=== PATIENT | female | born 1935 | race Caucasian/White ===

== ENCOUNTER 2016-12-16 05:48 | Inpatient (IN) | payer MEDICARE, OTHER ==
[~2016-12-16] VITALS: Ht 162.6 cm; Wt 60.1 kg
[~2016-12-16 05:48] MED LIST: CALC-316 PO; CHOL10003 PO; FLUO40CA9 PO; FLUT9.9S NS; FOLI1TAB66 PO; GABA300C10 PO; LUTE20CA PO; VIT1TABL32 PO; VITA1CAP PO; VITA80004 PO
[2016-12-16] MEDS ORDERED: LACTATED RINGERS 1,000 ML IV SCH (06:22)
[2016-12-16 06:23] VITALS: BP 128/81
[2016-12-16] MEDS ORDERED: FENTANYL PF 250 MCG/5ML ONE (06:49)
[2016-12-16] MEDS ORDERED: MIDAZOLAM 1 MG/ML, 2ML ONE ×2 (06:49→10:39)
[2016-12-16] MEDS ORDERED: EPINEPHRINE 1 MG/ML, 1ML ONE (06:58)
[2016-12-16] MEDS ORDERED: NEOSPORIN OINT, 15GM ONE (06:58)
[2016-12-16] MEDS ORDERED: BUPIVACAINE/PF 0.5% ONE (06:58)
[2016-12-16] MEDS ORDERED: THROMBIN 5,000 UNIT VIAL TP ONE (06:59)
[2016-12-16] MEDS ORDERED: ONDANSETRON 2MG/ML, 2ML ONE (07:48)
[2016-12-16] MEDS ORDERED: PROPOFOL 10 MG/ML, 20ML ONE (07:48)
[2016-12-16] MEDS ORDERED: CEFAZOLIN 1,000 MG ONE (07:48)
[2016-12-16] MEDS ORDERED: SUCCINYLCHOLINE 20 MG/ML, 10ML ONE (07:48)
[2016-12-16] MEDS ORDERED: DEXAMETHASONE 4 MG/ML, 1ML ONE (07:48)
[2016-12-16] MEDS ORDERED: OXYcodone/APAP 5/325MG TABLET PO PRN (08:00)
[2016-12-16] MEDS ORDERED: PHARMACY MAY ADJ FOR RENAL FX MC PRN (08:00)
[2016-12-16] MEDS ORDERED: SENNA/DOCUSATE TABLET PO PRN (08:00)
[2016-12-16] MEDS ORDERED: [UNRECOGNIZED DRUG - REMARK] NS PRN (08:00)
[2016-12-16] MEDS ORDERED: METHOCARBAMOL 750 MG TABLET PO PRN (08:00)
[2016-12-16] MEDS ORDERED: HYDROcodone/APAP 5/325 TABLET PO PRN (08:00)
[2016-12-16] MEDS ORDERED: DIPHENHYDRAMINE 50 MG/ML, 1ML IVPush PRN (08:00)
[2016-12-16] MEDS ORDERED: ONDANSETRON 2MG/ML, 2ML IVPush PRN ×2 (08:00→08:30)
[2016-12-16] MEDS ORDERED: morphine SULFATE 10 MG/ML, 1ML IVPush PRN (08:00)
[2016-12-16] MEDS ORDERED: BISACODYL 10 MG SUPP PR PRN (08:00)
[2016-12-16] MEDS ORDERED: MAGNESIUM HYDROXIDE 8%, 30ML UDC PO PRN (08:00)
[2016-12-16] MEDS ORDERED: ACETAMINOPHEN 325 MG TABLET PO PRN (08:30)
[2016-12-16] MEDS ORDERED: OXYcodone 5 MG/5 ML ORAL.SOL UDC PO PRN (08:30)
[2016-12-16] MEDS: MAG OXIDE PO SCH (09:00)
[2016-12-16] MEDS: TEMPLATE NON-FORMULARY MED. (Fluoxetine Hcl** (Prozac**) 40 MG) PO SCH (09:00)
[2016-12-16] MEDS: VIT D3 PO SCH (09:00)
[2016-12-16] MEDS: GABAPENTIN 300 MG CAPSULE PO SCH ×2 (09:00→21:17)
[2016-12-16] MEDS: CALCIUM CARB PO SCH (09:00)
[2016-12-16] MEDS: LUTEIN 20 MG PO SCH (09:00)
[2016-12-16] MEDS ORDERED: OXYcodone 5 MG/5 ML ORAL.SOL UDC ONE (10:15)
[2016-12-16] MEDS ORDERED: HYDROmorphone 1 MG/ML, 1ML ONE (10:15)
[2016-12-16] MEDS: HYDROmorphone 1 MG/ML, 1ML IV PRN ×2 (10:17→10:32)
[2016-12-16] MEDS: MIDAZOLAM 1 MG/ML, 2ML IV PRN ×2 (10:30→10:50)
[2016-12-16] MEDS: FENTANYL PF 100 MCG/2ML IV PRN ×2 (10:30→10:50)
[2016-12-16] MEDS ORDERED: FENTANYL PF 100 MCG/2ML ONE (10:39)
[2016-12-16] MEDS ORDERED: NALOXONE 0.4 MG/ML, 1ML ONE (11:11)
[2016-12-16] MEDS ORDERED: NALOXONE 0.4 MG/ML, 1ML IVPush PRN (12:00)
[2016-12-16] MEDS ORDERED: LABETALOL 5MG/ML, 20ML IV PRN (13:00)
[2016-12-16 14:51] VITALS: BP 128/73
[2016-12-16] MEDS: CEFAZOLIN PMX 1GM/50ML 50 ML IVPB SCH (15:53)
[2016-12-16] MEDS: D5%-0.9% NACL+KCL 20MEQ 1,000 ML IV SCH (15:53)
[2016-12-16 18:51] VITALS: BP 97/54
[2016-12-17] MEDS: CEFAZOLIN PMX 1GM/50ML 50 ML IVPB SCH (00:17)
[2016-12-17 00:20] VITALS: BP 96/57
[2016-12-17 03:58] VITALS: BP 98/48
[2016-12-17] MEDS: D5%-0.9% NACL+KCL 20MEQ 1,000 ML IV SCH (05:43)
[2016-12-17 07:40] VITALS: BP 109/70
[2016-12-17] MEDS ORDERED: ALBUTEROL SULFATE 2.5MG/0.5ML NPPB PRN ×2 (08:30→16:30)
[2016-12-17] MEDS: TEMPLATE NON-FORMULARY MED. (Fluoxetine Hcl** (Prozac**) 40 MG) PO SCH (09:00)
[2016-12-17] MEDS: LUTEIN 20 MG PO SCH (09:00)
[2016-12-17] MEDS: MAG OXIDE PO SCH (09:00)
[2016-12-17] MEDS: CALCIUM CARB PO SCH (09:00)
[2016-12-17] MEDS: VIT D3 PO SCH (09:00)
[2016-12-17] MEDS: GABAPENTIN 300 MG CAPSULE PO SCH (10:19)
[2016-12-17] MEDS ORDERED: MAGNESIUM CHLORIDE 64 MG TABLET.DR PO SCH (11:00)
[2016-12-17] MEDS ORDERED: CALCIUM/VITAMIN D3 250-125 TABLET PO SCH (11:00)
[2016-12-17] MEDS ORDERED: FLUOXETINE 20 MG CAPSULE PO SCH (11:00)
[2016-12-17] MEDS ORDERED: ALBUTEROL SULFATE 2.5 MG/3 ML ONE ×2 (13:33→15:07)
[2016-12-17 13:49] VITALS: BP 113/64
== END 2016-12-17 17:02 | disposition home or self-care (01) | DRG 455 ==
LOC: ORIP 05:48 → 4NOR 13:02 → DCLOUNGE 12-17 16:11
PROVIDERS: ADMIT Orthopaedic Surgery Orthopaedic Surgery of the Spine; ATTEND Orthopaedic Surgery Orthopaedic Surgery of the Spine
PROC: [UNRECOGNIZED PROCEDURE] (2016-12-16)
PROC: 0SG03A0 Fusion of Lumbar Vertebral Joint with Interbody Fusion Device, Anterior Approach, Anterior Column, Percutaneous Approach (ICD-10-PCS; principal; 2016-12-16 07:30)
DX: M51.36 Other intervertebral disc degeneration, lumbar region (principal); M54.9 Dorsalgia, unspecified; Z88.8 Allergy status to other drugs, medicaments and biological substances; Z91.018 Allergy to other foods
CPT/HCPCS: 36415; 72100; 85025; 94640; C1713; C1767; J0171; J0690; J1100; J1170; J2250; J2310; J2405; J2704; J3010; J3490; J7611; C1760; C1762; J0330; J3480; J7120